=== PATIENT | male | born 1980 | race Caucasian/White ===

== ENCOUNTER 2018-08-03 14:43 | Emergency (ER) | payer SELFPAY ==
[~2018-08-03] VITALS: Ht 165.1 cm; Wt 82.0 kg
[2018-08-03 14:50] VITALS: Ht 165.1 cm; Wt 82.0 kg
--- NOTE | 2018-08-03 15:08 | ERD ---
ER Documentation Chief Complaint Chief Complaint psych eval-pt was throwing objects at people in public HPI The patient is a 38-year-old male, brought into the ER by EMS and [employer] officers b/c he was throwing objects at the people in public. He is unable to provide any significant history due to his acute agitation Past medical/surgical history/social history/review of system: Unable to obtain due to his condition Medications Home Meds Unable to Obtain Active Prescriptions or Reported Meds Allergies Allergies: Coded Allergies: Unknown: Unable to obtain (Unverified , 08/03/18) Physical Exam Vitals Vital Signs Date Temp Pulse Resp B/P (MAP) Pulse Ox O2 O2 Flow FiO2 Time Delivery Rate 08/03/18 89 17 101/79 99 Room Air 18:48 (86) 08/03/18 69 18 119/68 100 17:00 (85) 08/03/18 89 19 122/70 100 16:45 (87) 08/03/18 99 18 125/71 100 16:30 (89) 08/03/18 105 20 127/79 100 16:15 (95) 08/03/18 98.0 103 20 133/85 98 16:00 (101) 08/03/18 98.0 68 21 133/85 98 Room Air 15:10 (101) 08/03/18 98.0 108 21 133/85 98 14:50 (101) Physical Exam Const: No acute distress. Head: Atraumatic. Eyes: Normal Conjunctiva. ENT: Normal External Ears, Nose and Mouth. Neck: Full range of motion. No meningismus. Resp: Clear to auscultation bilaterally. Cardio: Regular rate and rhythm. Abd: Soft, non distended, normal bowel sounds, non tender. Skin: No petechiae or rashes. Back: No midline or flank tenderness. Ext: No cyanosis, or edema. Neur: Limited due to his condition Psych: Psychotic Result Diagram: 08/03/18 1701 08/03/18 1701 Results 24 hrs Laboratory Tests Test 08/03/18 17:01 White Blood Count 15.8 10^3/ul Red Blood Count 4.09 10^6/ul Hemoglobin 12.4 g/dl Hematocrit 38.0 % Mean Corpuscular Volume 92.9 fl Mean Corpuscular Hemoglobin 30.3 pg Mean Corpuscular Hemoglobin Concent 32.6 g/dl Red Cell Distribution Width 14.1 % Platelet Count 261 10^3/UL Mean Platelet Volume 8.9 fl Immature Granulocytes % 0.400 % Neutrophils % 71.7 % Lymphocytes % 16.2 % Monocytes % 9.3 % Eosinophils % 1.7 % Basophils % 0.7 % Nucleated Red Blood Cells % 0.0 /100WBC Immature Granulocytes # 0.060 10^3/ul Neutrophils # 11.3 10^3/ul Lymphocytes # 2.6 10^3/ul Monocytes # 1.5 10^3/ul Eosinophils # 0.3 10^3/ul Basophils # 0.1 10^3/ul Nucleated Red Blood Cells # 0.0 10^3/ul Sodium Level 142 mmol/L Potassium Level 3.9 mmol/L Chloride Level 108 mmol/L Carbon Dioxide Level 27 mmol/L Anion Gap 7 Blood Urea Nitrogen 20 mg/dl Creatinine 0.72 mg/dl Est Glomerular Filtrat Rate mL/min > 60 mL/min Glucose Level 66 mg/dl Calcium Level 9.3 mg/dl Total Bilirubin 0.9 mg/dl Direct Bilirubin 0.00 mg/dl Indirect Bilirubin 0.9 mg/dl Aspartate Amino Transf (AST/SGOT) 37 IU/L Alanine Aminotransferase (ALT/SGPT) 29 IU/L Alkaline Phosphatase 52 IU/L Total Protein 7.5 g/dl Albumin 4.2 g/dl Globulin 3.30 g/dl Albumin/Globulin Ratio 1.27 Salicylates Level < 1.0 mg/dl Acetaminophen Level < 10.0 ug/ml Ethyl Alcohol Level < 10.0 mg/dl Current Medications Medications Dose Sig/Danielle Start Time Status Last (Trade) Ordered Route PRN Stop Time Admin Dose Reason Admin Haloperidol 5 mg ONCE ONCE 08/03/18 DC (Haldol) IM 15:30 08/03/18 15:32 50 mg ONCE ONCE 08/03/18 DC Diphenhydrami IV 15:30 ne HCl 08/03/18 15:32 (Benadryl) Lorazepam 2 mg ONCE ONCE 08/03/18 DC (Ativan) IM 15:30 08/03/18 15:32 Haloperidol 5 mg ONCE STAT 08/03/18 DC 08/03/18 (Haldol) IM 15:09 15:23 08/03/18 15:11 Lorazepam 2 mg ONCE ONCE 08/03/18 DC 08/03/18 (Ativan) IM 15:30 15:25 08/03/18 15:31 50 mg ONCE ONCE 08/03/18 DC 08/03/18 Diphenhydrami IM 15:30 15:24 ne HCl 08/03/18 15:31 (Benadryl) Procedures/MDM UA/UDS Pending MEDICAL MAKING DECISION: The patient is a 38-year-old male, presenting with acute psychosis, he did not respond to counseling, he was therefore treated with Benadryl 50 mg IM, Haldol 5 mg IM and Ativan 2 mg IM with good response. The differential diagnoses considered include but are not limited to drug- induced psychosis, psychosis, decompensated psychiatric illness, anxiety attack, panic attack, UTI, PNA Departure Diagnosis: Primary Impression: Psychosis Additional Impression: Anemia Condition: Stable Comments The patient's blood pressure was elevated (>120/80) but appears stable without evidence of hypertension emergency or urgency. The patient was counseled about the risks of hypertension and urged to pursue outpatient monitoring and therapy within a week with their primary care physician. He is awaiting for telepsychiatrist evaluation when GIO Davidson MD August 03, 2018 15:08
[2018-08-03] MEDS ORDERED: HALOPERIDOL 5 MG INJ IM STA (15:09)
[2018-08-03] MEDS ORDERED: HALOPERIDOL 5 MG INJ IM ONE (15:30)
[2018-08-03] MEDS ORDERED: DIPHENHYDRAMINE 50 MG INJ IV ONE (15:30)
[2018-08-03] MEDS ORDERED: LORAZEPAM 2 MG INJ IM ONE ×2 (15:30)
[2018-08-03] MEDS ORDERED: DIPHENHYDRAMINE 50 MG INJ IM ONE (15:30)
[2018-08-04 08:47] VITALS: BP 125/79; PULSE 66; RESP 17
== END 2018-08-04 09:57 | disposition home or self-care (01) ==
LOC: E/R 14:43
DX: F29 Unspecified psychosis not due to a substance or known physiological condition (principal); D64.9 Anemia, unspecified; R40.2142 Coma scale, eyes open, spontaneous, at arrival to emergency department; R40.2362 Coma scale, best motor response, obeys commands, at arrival to emergency department; R05 Cough
CPT/HCPCS: 71045; 80053; 80307; 85025; 96372; 99284; J1200; J1630; J2060